=== PATIENT | male | born 2000 | race Two or more races ===

== ENCOUNTER 2024-09-17 09:51 | Outpatient (REF) | payer MEDICAID, OTHER, SELFPAY ==
[2024-09-17 12:06] LABS: Basophils Percent Auto 0.5 % (0-2); Eosinophils Absolute Auto 2.4 X10*3/uL (0.0-0.4); Eosinophils Percent Auto 29.9 % (0-4); Hematocrit 45.6 % (42.0-52.0); Hemoglobin 15.3 g/dl (14.0-18.0); Imm Gran Abs Auto 0.02 X10*3/uL (0.00-0.03); Imm Gran Pct Auto 0.3 % (0.0-0.4); Lymphocytes Absolute Auto 2.4 X10*3/uL (1.2-4.9); Lymphocytes Percent Auto 30.6 % (20-40); MANUAL DIFF FLAG SCAN; Mean Corpuscular HGB Conc 33.6 g/dl (31.0-36.0); Mean Corpuscular Hemoglobin 26.8 pg (27.0-33.0); Mean Platelet Volume 10.6 fL (9.4-12.4); Monocytes Absolute Auto 0.4 X10*3/uL (0.1-1.2); Monocytes Percent Auto 4.8 % (2-11); Neutrophils Absolute Auto 2.7 x10*3/uL (2.0-8.3); Neutrophils Percent Auto 33.9 % (45-73); Platelet Count 200 X10*3/uL (160-400); Red Cell Distribution Width 14.5 % (11.0-16.0); SCAN SMEAR FLAG 1; White Blood Count 7.9 X10*3/uL (4.8-10.8)
[2024-09-17 12:17] LABS: Alanine Aminotransferase 23 U/L (0-40); Albumin Level 4.3 g/dL (3.5-5.0); Alkaline Phosphatase 87 U/L (39-117); Anion Gap 11 (12-20); Aspartate Amino Transferase 37 U/L (5-37); Bilirubin Total 0.3 mg/dL (0.0-1.0); Blood Urea Nitrogen 12 mg/dL (9-16); Calcium 9.2 mg/dL (8.4-10.2); Carbon Dioxide 28 mmol/L (22-29); Chloride 103 mmol/L (96-108); Estimated Glomerular Filt Rate > 60; Glucose Random 92 mg/dL (60-115); Lipase 25 U/L (8-78); Potassium 3.9 mmol/L (3.3-5.1); Sodium 138 mmol/L (135-145); Total Protein 7.3 g/dL (6.5-8.0)
[2024-09-17 12:32] LABS: SLIDE REVIEW VERIFIED
== END 2024-09-17 09:52 | disposition home or self-care (01) ==
LOC: HO.HHCL 09:51
PROVIDERS: Visit Provider Emergency Medicine
DX: R11.0 Nausea (principal)
CPT/HCPCS: 36415; 80053; 83690; 85025

== ENCOUNTER 2024-09-23 11:12 | Outpatient (REF) | payer MEDICAID, OTHER, SELFPAY | END 2024-09-23 11:13 | disposition home or self-care (01) | LOC: HO.HHCLNP 11:12 | PROVIDERS: Visit Provider Emergency Medicine | DX: R11.0 Nausea (principal) | CPT/HCPCS: 87338 ==

== ENCOUNTER 2024-10-31 13:38 | Outpatient (REF) | payer MEDICAID, OTHER, SELFPAY ==
[2024-10-31 14:22] LABS: H Pylori Breath Test Negative (Negative)
== END 2024-10-31 13:39 | disposition home or self-care (01) ==
LOC: HO.HHCLNP 13:38
PROVIDERS: Visit Provider Family Medicine
DX: K29.70 Gastritis, unspecified, without bleeding (principal); B96.81 Helicobacter pylori [H. pylori] as the cause of diseases classified elsewhere
CPT/HCPCS: 83013

== ENCOUNTER 2025-03-13 09:50 | Outpatient (REF) | payer OTHER, SELFPAY ==
--- OUTSIDE RECORDS SUMMARY | 2025-03-13 10:10 | XMS_ITS | Clinical Summary ---
Author Organization [employer] Address [address] [facility] [address] [place] [address] Care Team Providers Care Compliance Aide Name Role Phone Alena Garcia MD Primary Care Pro vider Allergies No known active allergies Medications ondansetron (Zofran) 4 MG tablet Take 1 tablet (4 mg) by mouth every 8 (eight) hours if needed for nausea or vomiting for up to 10 days. 20 tablet 03/13/20 25 025 Active famotidine (Pepcid) 20 MG tablet Take 1 tablet (20 mg) by mouth if needed at bedtime for heartburn. 30 tablet 3 03/13/20 25 026 Active omeprazole OTC (PriLOSEC OTC) 20 MG EC tablet Take 1 tablet (20 mg) by mouth before breakfast and before evening meal. Do not crush, chew, or split. 60 tablet 3 03/13/20 25 026 Active ondansetron (Zofran) 4 MG tablet Take 1 tablet (4 mg) by mouth every 8 (eight) hours if needed for nausea or vomiting for up to 10 doses. 10 tablet 09/17/20 24 025 Discontinued(Re order (will not trigger notification to Pharmacy)) omeprazole (PriLOSEC) [address] capsule Take 1 capsule (20 mg) by mouth before breakfast and before evening meal. Do not crush or chew. 120 capsule 11/21/19 025 Discontinued Active Problems Problem Noted Date Diagnosed Date Dyspepsia 11/21/2024 Assessment & Plan (11/21/2024 9:53 AM EST): Most likely related to recent H. Pylori infection, he may have developed PUD. Order labs. Use Sucralfate TID with meals x 1 week. Complete Omeprazole BID for at least 30 days. Rule out IBS, FU with PCP. Nausea 11/21/2024 Epigastric pain 11/21/2024 Assessment & Plan (11/21/2024 9:53 AM EST): Most likely PUD related to H. Pylori, see above. Helicobacter pylori (H. pylori) infection 2023 BMI 28.0-28.9,adult 04/21/2023 Encounters Date Type Department Care Team Description 03/13/2025 9:00 AM EDT Office Visit [facility] [address] [place] [id number] Epigastric pain (Primary Dx) from Last 3 Months Immunizations Immunization Administration Dates Next Due HPV 9-Valent 03/19/2019,10/11/2018,06/26/2018 Hep A, ped/adol, 2 dose 03/19/2019,06/26/2018 Hep B, Adolescent or Pediatric 03/19/2019,2017,06/26/2018 IPV 03/19/2019,10/11/2018,06/26/2018 Influenza injectable quadriv alent preservative free 10/11/2018 MMR 10/11/2018,06/26/2018 Meningococcal [id number] [id number] 06/26/2018 Tdap 06/26/2018 Varicella 10/11/2018,06/26/2018 Social History Tobacco Use Types Packs/Day Years Used Date Smoking Tobacco: Never Passive Smoke Exposure: Never Smokeless Tobacco: Never Tobacco Cessation:Counseling Given: Not Answered Alcohol Use Standard Drinks/Week Comments Never 0 (1 standard drink = 0.6 oz pur e alcohol) Sex and Gender Information Value Date Recorded Sex Assigned at Male 08/22/2022 10:34 AM EDT Legal Sex Male 10:34 AM EDT Gender Identity Choose not to disclose 10:34 AM EDT Sexual Orientation Choose not to disclose 2021 10:34 AM EDT Last Filed Vital Signs Vital Sign Reading Time Taken Comments Blood Pressure 126/74 03/13/2025 8:49 AM EDT Pulse 60 03/13/2025 8:49 AM EDT Temperature 36.6 ??C (97.9 ??F) 03/13/2025 8:49 AM ED T Respiratory Rate 18 03/13/2025 8:49 AM EDT Oxygen Saturation 98% 03/13/2025 8:49 AM EDT Inhaled Oxygen Concentration - - Weight 80.5 kg (177 lb 6.4 oz) 03/13/2025 8:49 A M EDT Height 167.6 cm (5' 6 ) 11/21/2024 9:24 AM EST Body Mass Index 28.63 11/21/2024 9:24 AM EST Plan of Treatment Health Maintenance Due Date Last Done Comments Depression Screening 2001 SDOH Screening 2001 Disability Screening 2001 Alcohol/Substance Use Screening 2013 Family Planning (PISQ) 2016 Meningococcal B Vaccine (1 o f 2 - Standard) 2017 IPV Vaccines (4 of 4 - 5-dos e series) 09/19/2019 03/19/2019, 10/11/2018, 06/26/2018 Chlamydia and Gonorrhea Screening 04/21/2024 04/21/2023 COVID-19 Vaccine (1 - 2023-2 5 season) 2024 Influenza Vaccine (#1) 2024 10/11/2018 Tobacco Screening 11/21/2025 11/21/2024 DTaP/Tdap/Td Vaccines (2 - T d or Tdap) 06/26/2028 06/26/2018 Zoster Vaccines (1 of 2) 2051 RSV Patients and Patients Aged 60 years or older (1 - 1-dose 75+ series) 2076 Meningococcal Vaccine Completed 06/26/2018 HPV Vaccines Completed 03/19/2019, 10/11/2018, 06/26/2018 Hepatitis A Vaccines Completed 03/19/2019, 06/26/2018 Hepatitis B Vaccines Completed 03/19/2019, 10/11/2018, 06/26/2018 HIV Screening Completed 04/21/2023 Hepatitis C Screening Completed 04/21/2023 HIB Vaccines Aged Out No longer eligi ble based on patient's age to complete this topic Pneumococcal Vaccine: Pediatrics (0 to 5 Years) and At-Risk Patients (6 to 49) Years) Aged Out No longer eligible b ased on patient's age to complete this topic RSV under 20 months Aged Out No longe r eligible based on patient's age to complete this topic Rotavirus Vaccines Aged Out No longer eligible based on patient's age to complete this topic Procedures Procedure Name Priority Date/Time Associated Diagnosis Comments HEPATITIS C AB W/RFL RNA, PCR W/RFL GENOTYPE,LIPA Routine 04/21/2023 9:27 AM EDT Healthcare maintenance HIV 1/2 ANTIGEN/ANTIBODY, FOURTH GENERATION W/RFL Routine 04/21/2023 9:27 AM EDT Healthcare maintenance CHLAMYDIA/N. GONORRHOEAE RNA, TMA, UROGENITAL Routine 04/21/2023 9:27 AM EDT Healthcare maintenance from Last 3 Months or Most Recently Relevant to Health Maintenance Results * Hepatitis C Antibody with Reflex to HCV RNA,PCR w/Reflex to Genotype, LiPA (04/21/2023 9:27 AM EDT) Hepatitis C Antibody NON-REACT WILLIAMS NON-REACT WILLIAMS [employer] Comment: HCV antibody was non-reactive. There is no laboratory evidence of HCV infection. In most cases, no further action is required. However, if recent HCV exposure is suspected, a test for HCV RNA (test code 67595) is suggested. For additional information, please refer to http://education.KongZhong/faq/KCG222 (This link is being provided for informational/ educational purposes only.) 04/21/2023 9:27 AM EDT 04/21/2023 9:28 AM EDT Narrative [facility] - 04/24/2023 5:50 PM EDT FASTING:UNKNOWN FASTING: UNKNOWN us Emilie Yanez DO LAB BLOOD ORDERABLES Final R esult [facility] [address] [place] [address] [employer] [place] [employer] [address] [place] [address] * Chlamydia/N. Gonorrhoeae RNA, TMA, Urogenitial (04/21/2023 9:27 AM EDT) Chlamydia trachomatis RNA, TMA, Urogenital NOT DETECTED NOT DETECTED [employer] [place] [employer] Neisseria gonorrhoeae RNA, TMA, Urogenital NOT DETECTED NOT DETECTED [employer] [place] [employer] (Always Message) [facility] [email or web address] [place] [employer] Comment: The analytical performance characteristics of this assay, when used to test SurePath(TM) specimens have been determined by [employer]. The modifications have not been cleared or approved by the FDA. This assay has been validated pursuant to the CLIA regulations and is used for clinical purposes. For additional information, please refer to https://education.Dynamighty/faq/YDQ310 (This link is being provided for information/ educational purposes only.) Urine, Random 04/21/2023 9:2 7 AM EDT 04/21/2023 9:28 AM EDT Narrative [facility] - 04/24/2023 5:50 PM EDT FASTING:UNKNOWN FASTING: UNKNOWN us Emilie Yanez DO LAB MICROBIOLOGY - GENERAL O RDERABLES Final Result [facility] [address], [place] [address] [employer] [place] [facility] [address] [place] [address] * HIV-1/2 Antigen and Antibodies, Fourth Generation, with Reflexes (04/21/2023 9:27 AM EDT) Pathologist [facility] HIV Antigen/Antibody, 4th Generation NON-REAC TIVE NON-REAC TIVE [employer] [place] [employer] Comment: HIV-1 antigen and HIV-1/HIV-2 antibodies were not detected. There is no laboratory evidence of HIV infection. PLEASE NOTE: This information has been disclosed to you from records whose confidentiality may be protected by state law. ??If your state requires such protection, then the state law prohibits you from making any further disclosure of the information without the specific written consent of the person to whom it pertains, or as otherwise permitted by law. A general authorization for the release of medical or other information is NOT sufficient for this purpose. ?? For additional information please refer to http://education.Surfly.Stootie/faq/RLF561 (This link is being provided for informational/ educational purposes only.) The performance of this assay has not been clinically validated in patients less than 2 years old. Blood Venous blood specimen / Unknown 04/21/2023 9:27 AM EDT 04/21/2023 9:28 AM EDT Narrative [facility] - 04/24/2023 5:50 PM EDT FASTING:UNKNOWN FASTING: UNKNOWN us Emilie Yanez DO LAB BLOOD ORDERABLES Final R esult [facility] [address] [place] [address] [employer] [facility] [address] [place] [address] from Last 3 Months or Most Recently Relevant to Health Maintenance Insurance LIMITED HS [facility] ST[facility] Care Teams Compliance Aide Relationship Specialty Start Date End Date Alena Garcia MD [address] [place] [address] [id number] PCP - General Internal Medicine 04/21/23
--- OUTSIDE RECORDS SUMMARY | 2025-03-13 10:10 | XMS_ITS | Encounter Summary ---
Author Organization [employer] Address [address] [place] [address] [address] [place] [address] Care Team Providers Care Software Support Specialist Name Role Phone Alena Garcia MD Primary Care Pro vider Reason for Referral * Consultation (Urgent) - Pending Review Specialty Diagnoses / Procedures Referred By Herminia roy Referred To Contact Gastroenterology Diagnoses Epigastric pain Emilie Yanez DO [address] [place] [address] Phone: tel: fax: Referral ID Status Reason Start Date Expiration Date Visits Requested Visits Authorized [id number] Pending Review Specialty Services Required 03/13/2025 03/13/2026 1 1 Reason for Visit * Reason Comments Abdominal Pain Encounter Details Date Type Department Care Team (Late st Contact Info) Description 03/13/2025 9:00 AM EDT Office Visit [facility] [address] [place], [place] [phone] Epigastric pain (Primary Dx) Social History Tobacco Use Types Packs/Day Years Used Date Smoking Tobacco: Never Passive Smoke Exposure: Never Smokeless Tobacco: Never Alcohol Use Standard Drinks/Week Comments Never 0 (1 standard drink = 0.6 oz pur e alcohol) Sex and Gender Information Value Date Recorded Sex Assigned at Male 08/22/2022 10:34 AM EDT Legal Sex Male 10:34 AM EDT Gender Identity Choose not to disclose 10:34 AM EDT Sexual Orientation Choose not to disclose 2021 10:34 AM EDT documented as of this encounter Last Filed Vital Signs Vital Sign Reading [...] oz) 03/13/2025 8:49 A M EDT Height - - Body Mass Index 28.63 11/21/2024 9:24 AM EST documented in this encounter Plan of Treatment Scheduled Orders Name Type Priority Associated Diagnoses Orde r Schedule Basic Metabolic Panel Lab Routine Epigastric pain Expected: 03/13/2025 (Approximate), Expires: 03/13/2026 Hepatic Function Panel Lab Routine Epigastric pain Expected: 03/13/2025 (Approximate), Expires: 03/13/2026 Helicobacter pylori, Urea Breath Test Lab Routine Epigastric pain Ordered: 03/13/2025 Scheduled Referrals Name Type Priority Associated Diagnoses Order Schedule Referral to Gastroenterology Outpatient Referral Urgent Epigastric pain Expected: 03/13/2025 (Approximate), Expires: 03/13/2026 documented as of this encounter Visit Diagnoses Diagnosis Epigastric pain- Primary Abdominal pain, epigastric documented in this encounter Care Teams Software Support Specialist Relationship Specialty Start Date End Date Alena Garcia MD [address] [place] [id number] PCP - General Internal Medicine 04/21/23 documented as of this encounter
--- OUTSIDE RECORDS SUMMARY | 2025-03-13 10:10 | XMS_ITS | Encounter Summary ---
Author Organization [employer] [facility] Address [address] [place] [address] [address] [place] [address] Care Team Providers Care Graduate Internship Name Role Phone Smita Riley Primary Care Provider [phone] Alena Garcia MD Primary Care Pro vider Encounter Details Date Type Department Care Team (Latest Contact Info) Description 08/01/2019 Abstract [facility] Dental, Provider, DDS Social History Tobacco Use Types Packs/Day Years Used Date Smoking Tobacco: Never Assessed Sex and Gender Information Value Date Recorded Sex Assigned at Male 08/22/2022 10:34 AM EDT Legal Sex Male 10:34 AM EDT Gender Identity Choose not to disclose 10:34 AM EDT Sexual Orientation Choose not to disclose 2021 10:34 AM EDT documented as of this encounter Plan of Treatment Not on file documented as of this encounter Visit Diagnoses Not on filedocumented in this encounter Care Teams Graduate Internship Relationship Specialty Start Date End Date Smita Riley FNP [address] [place] [address] PCP - General Family Medicine 07/14/21 04/20/23 Alena Garcia MD [address] [place], [place] [phone] PCP - General Internal Medicine 04/21/23 documented as of this encounter
[2025-03-13 11:11] LABS: MANUAL DIFF FLAG NO
[2025-03-13 11:20] LABS: Basophils Percent Auto 0.6 % (0-2); Eosinophils Absolute Auto 0.4 X10*3/uL (0.0-0.4); Eosinophils Percent Auto 6.5 % (0-4); Hemoglobin 15.9 g/dl (14.0-18.0); Imm Gran Abs Auto 0.01 X10*3/uL (0.00-0.03); Imm Gran Pct Auto 0.2 % (0.0-0.4); Lymphocytes Percent Auto 32.1 % (20-40); Mean Corpuscular HGB Conc 32.4 g/dl (31.0-36.0); Mean Corpuscular Hemoglobin 26.6 pg (27.0-33.0); Mean Corpuscular Volume 82.1 fL (80.0-98.0); Mean Platelet Volume 10.7 fL (9.4-12.4); Monocytes Absolute Auto 0.6 X10*3/uL (0.1-1.2); Monocytes Percent Auto 8.9 % (2-11); Neutrophils Absolute Auto 3.2 x10*3/uL (2.0-8.3); Neutrophils Percent Auto 51.7 % (45-73); Platelet Count 205 X10*3/uL (160-400); Red Blood Count 5.97 X10*6/uL (4.60-5.80); Red Cell Distribution Width 13.5 % (11.0-16.0); White Blood Count 6.2 X10*3/uL (4.8-10.8)
[2025-03-13 12:07] LABS: Folate 13.3 ng/mL (> or = 4.0); Vitamin B12 584 pg/mL (200-900)
[2025-03-13 13:10] LABS: Alanine Aminotransferase 53 U/L (0-40); Albumin Level 4.8 g/dL (3.5-5.0); Alkaline Phosphatase 97 U/L (39-117); Amylase 58 U/L (28-100); Anion Gap 11 (12-20); Aspartate Amino Transferase 51 U/L (5-37); Bilirubin Direct 0.1 mg/dL (0.0-0.5); Bilirubin Total 0.4 mg/dL (0.0-1.0); Blood Urea Nitrogen 11 mg/dL (9-16); Calcium 9.3 mg/dL (8.4-10.2); Carbon Dioxide 28 mmol/L (22-29); Chloride 106 mmol/L (96-108); Estimated Glomerular Filt Rate > 60; Ferritin 14 ng/mL (20-250); Glucose Random 87 mg/dL (60-115); Lipase 19 U/L (8-78); Potassium 4.1 mmol/L (3.3-5.1); Sodium 141 mmol/L (135-145); Total Protein 7.7 g/dL (6.5-8.0)
[2025-03-14 14:39] LABS: H Pylori Breath Test Negative (Negative)
== END 2025-03-13 09:51 | disposition home or self-care (01) ==
LOC: HO.HHCL 09:50
PROVIDERS: Internal Medicine; Visit Provider Family Medicine
DX: R10.13 Epigastric pain (principal); R11.0 Nausea
CPT/HCPCS: 36415; 80048; 80076; 82150; 82607; 82728; 82746; 83013; 83690; 85025